=== PATIENT | female | born 1950 | race Caucasian/White ===

== ENCOUNTER 2017-09-01 11:03 | Emergency (ER) | payer BC, OTHER ==
--- NOTE | 2017-09-01 13:15 | UC ---
Respiratory Complaint HPI - HPI Summary HPI Summary: SEVERAL WEEKS OF CONGESTION, DRAINAGE, EAR PRESSURE, MARIE, SINUS PRESSURE AND FATIGUE. NOT SLEEPING WELL DUE TO SX. NETTI POT AND OTC MEDS NO LONGER HELPING. NO FEVER. - History of Current Complaint Chief Complaint: UCRespiratory Stated Complaint: SINUSES Time Seen by Provider: 09/01/17 13:04 Hx Obtained From: Patient Hx Last Menstrual Period: n/a Onset/Duration: Gradual Onset, Lasting Weeks, Still Present Timing: Constant Severity Initially: Moderate Severity Currently: Moderate Pain Intensity: 3 Pain Scale Used: 0-10 Numeric Character: Cough: Nonproductive Aggravating Factors: Nothing Alleviating Factors: Nothing Associated Signs And Symptoms: Positive: URI, Nasal Congestion, Sinus Discomfort. Negative: Dyspnea, Fever, Wheezing, Hemoptysis - Allergies/Home Medications Allergies/Adverse Reactions: Allergies Allergy/AdvReac Type Severity Reaction Status Date / Time No Known Allergies Allergy Verified 09/01/17 11:20 Home Medications: Home Medications Multiple Vitamin [Multi Vitamin] 1 tab PO DAILY 09/01/17 [History Confirmed ] PMH/Surg Hx/FS Hx/Imm Hx Previously Healthy: Yes - Surgical History Surgical History: None - Family History Known Family History: Positive: None Negative: Hypertension - Social History Alcohol Use: Rare Substance Use Type: None Smoking Status (MU): Heavy Every Day Tobacco Smoker Amount Used/How Often: about 1 ppd Length of Time of Smoking/Using Tobacco: started about age 17 - Immunization History Most Recent Influenza Vaccination: no Review of Systems Constitutional: Chills, Fatigue ENT: Sore Throat, Ear Ache, Nasal Discharge Respiratory: Cough Cardiovascular: Negative Gastrointestinal: Negative Neurological: Headache All Other Systems Reviewed And Are Negative: Yes Physical Exam Triage Information Reviewed: Yes Appearance: Well-Appearing, No Pain Distress, Well-Nourished Vital Signs: Initial Vital Signs Temp 98 F 09/01/17 11:13 Pulse 98 09/01/17 11:13 Resp 18 09/01/17 11:13 BP 127/77 09/01/17 11:13 Pulse Ox 97 09/01/17 11:13 Vital Signs Reviewed: Yes Eyes: Positive: Conjunctiva Clear ENT: Positive: Hearing grossly normal, Pharynx normal, TMs normal Neck: Positive: Supple, Nontender, No Lymphadenopathy Respiratory Exam: Normal Cardiovascular Exam: Normal Abdomen Description: Positive: Soft Musculoskeletal: Positive: No Edema Neurological: Positive: Alert Psychological: Positive: Age Appropriate Behavior Skin: Negative: rashes UC Diagnostic Evaluation - Laboratory O2 Sat by Pulse Oximetry: 97 Respiratory Course/Dx - Differential Dx/Diagnosis Provider Diagnoses: ACUTE SINUSITIS Discharge - Discharge Plan Condition: Stable Disposition: HOME Prescriptions: Amoxicillin/Clavulanate TAB* [Augmentin TAB 875*] 875 mg PO BID #20 tab Patient Education Materials: Sinusitis (ED) Referrals: No Primary Care Phys,NOPCP [Primary Care Provider] - Additional Instructions: YOUR SYMPTOMS MAY BE VIRALLY MEDIATED BUT GIVEN THE LENGTH OF TIME YOU HAVE BEEN ILL WE WILL COVER YOU WITH ANTIBIOTICS. IF YOU START THE MEDICINE BE SURE TO TAKE IT FOR THE FULL COURSE. SEEK FOLLOW-UP WITH A PCP IF YOU ARE NOT IMPROVING OVER THE NEXT 1-2 WEEKS. TRY OTC AFRIN FOR NASAL CONGESTION. OKAY TO USE 2-3 SPRAYS IN EACH NOSTRIL UP TO 2 TIMES DAILY. DO NOT USE FOR MORE THAN 3-4 CONSECUTIVE DAYS TO PREVENT DEVELOPING REBOUND CONGESTION. CALL THE NUMBER BELOW FOR ASSISTANCE IN ESTABLISHING WITH A PCP An additional resource available to assist in finding the appropriate physician for your health care needs is [facility] ([facility]). You may contact them by calling [phone].
[2017-09-01 13:23] VITALS: BP 121/78
== END 2017-09-01 13:24 | disposition home or self-care (01) ==
LOC: UCCORT 11:03
DX: J01.90 Acute sinusitis, unspecified (principal); F17.210 Nicotine dependence, cigarettes, uncomplicated
CPT/HCPCS: 99212; G0463